=== PATIENT | female | born 1950 | race Caucasian/White ===

== ENCOUNTER 2022-07-12 14:30 | Inpatient (IN) | payer MEDICARE ==
[~2022-07-12] VITALS: Ht 162.6 cm; Wt 102.1 kg
[2022-07-12] MEDS ORDERED: ACETAMINOPHEN 325MG TABLET PO STA (14:38)
[2022-07-12 15:38] LABS: BASOPHILS % 0.5 % (0.0-2.0); EOSINOPHILS % 0.2 % (0.0-5.0); HEMATOCRIT. 34.9 % (36.0-48.0); HEMOGLOBIN. 11.5 g/dL (12.0-16.0); LYMPHOCYTES % 9.2 % (20.0-50.0); MEAN CORPUSCULAR HEMOGLOBIN 30.1 pg (28.0-32.0); MEAN CORPUSCULAR VOLUME 91.7 fL (81.0-99.0); MEAN PLATELET VOLUME 9.2 fl (7.4-10.4); MONOCYTES % 9.8 % (2.0-8.0); NEUTROPHILS % 80.3 % (40.0-76.0); PLATELET 163 x1000/uL (130-400); RED BLOOD CELL COUNT 3.81 mill/uL (4.2-5.4); RED CELL DISTRIBUTION WIDTH 14.6 % (11.6-14.6)
[2022-07-12 15:45] LABS: CHLORIDE 108 mEq/L (98-107)
[2022-07-12 15:49] LABS: INR 1.1; PROTHROMBIN TIME 11.4 sec (9.6-11.0)
[2022-07-12 15:54] LABS: ETHANOL BLOOD < 10 mg/dL
[2022-07-12 18:55] LABS: CLARITY URINE CLOUDY (CLEAR); COLOR URINE YELLOW (YELLOW); KETONES URINE NEGATIVE (NEGATIVE); LEUKOCYTE ESTERASE URINE 3+ (NEGATIVE); NITRITE URINE POSITIVE (NEGATIVE); OCCULT BLOOD URINE 1+ (NEGATIVE); PROTEIN URINE 2+ (NEGATIVE); SPECIFIC GRAVITY URINE 1.013 (1.005-1.030); UROBILINOGEN URINE 0.2 E.U./dL (0.2-1.0)
[2022-07-12] MEDS ORDERED: CEFTRIAXONE 2 G PREMIX 50 ML IV ONE (19:00)
[2022-07-12] MEDS ORDERED: SODIUM CHLORIDE 0.9% 1,000 ML IV NR (19:00)
[2022-07-12] MEDS ORDERED: CEFTRIAXONE 2 G in DEXTROSE 5% WATER 50 ML IV NR (19:15)
[2022-07-12 19:41] LABS: *AMPHETAMINES SCREEN URINE NEGATIVE (NEGATIVE); *BARBITURATES SCREEN URINE NEGATIVE (NEGATIVE); *BENZODIAZEPINES SCREEN URINE NEGATIVE (NEGATIVE); *COCAINE SCREEN URINE NEGATIVE (NEGATIVE); CANNABINOID URINE SCREEN NEGATIVE (NEGATIVE); METHADONE URINE SCREEN NEGATIVE (NEGATIVE); OPIATES URINE SCREEN NEGATIVE (NEGATIVE); PHENCYCLIDINE URINE SCREEN NEGATIVE (NEGATIVE)
[2022-07-12] MEDS ORDERED: DOCUSATE SODIUM 100MG CAPSULE PO PRN (23:45)
[2022-07-12] MEDS ORDERED: MAGNESIUM/ALUMINUM HYDROXIDE/SIMETHICONE 30ML UDC PO PRN (23:45)
[2022-07-12] MEDS ORDERED: ONDANSETRON HCL 4MG/2ML INJ IV PRN (23:45)
[2022-07-12] MEDS ORDERED: GUAIFENESIN 200MG/10ML SUGAR FREE UDC PO PRN (23:45)
[2022-07-12] MEDS ORDERED: ACETAMINOPHEN 325MG TABLET PO PRN (23:45)
[2022-07-13] MEDS ORDERED: DEXTROSE 50% WATER 50ML SYRINGE IV PRN
[2022-07-13 00:29] LABS: TOTAL IRON BINDING CAPACITY 281 ug/dL (250-450)
[2022-07-13 00:45] VITALS: BP 169/90
[2022-07-13] MEDS ORDERED: TRAZ-251 PO (01:00)
[2022-07-13] MEDS ORDERED: CARV3.1242 PO (01:00)
[2022-07-13] MEDS ORDERED: MONT-39 PO (01:00)
[2022-07-13] MEDS ORDERED: LOSA100T32 PO (01:00)
[2022-07-13] MEDS ORDERED: NALOXONE HCL 0.4MG/ML VIAL IV PRN (01:00)
[2022-07-13] MEDS ORDERED: ATOR-2 PO (01:00)
[2022-07-13] MEDS ORDERED: HYDR5TAB13 PO (01:00)
[2022-07-13 01:01] LABS: VITAMIN B12 SERUM 732 pg/mL (211-911)
[2022-07-13] MEDS: ACETAMINOPHEN 325MG TABLET PO PRN ×2 (01:17→20:30)
[2022-07-13] MEDS: CLONIDINE 0.1MG TABLET PO PRN (01:17)
[2022-07-13] MEDS: HYDROCODONE/ACETAMINOPHEN 5/325MG TABLET PO PRN ×2 (01:48→09:16)
[2022-07-13 06:12] LABS: BASOPHILS % 0.3 % (0.0-2.0); EOSINOPHILS % 0.1 % (0.0-5.0); HEMATOCRIT. 32.5 % (36.0-48.0); HEMOGLOBIN. 10.4 g/dL (12.0-16.0); LYMPHOCYTES % 9.2 % (20.0-50.0); MEAN CORPUSCULAR HEMOGLOBIN 29.6 pg (28.0-32.0); MEAN CORPUSCULAR VOLUME 92.7 fL (81.0-99.0); MEAN PLATELET VOLUME 9.4 fl (7.4-10.4); MONOCYTES % 7.7 % (2.0-8.0); NEUTROPHILS % 82.7 % (40.0-76.0); PLATELET 146 x1000/uL (130-400); RED CELL DISTRIBUTION WIDTH 14.5 % (11.6-14.6)
[2022-07-13 06:26] LABS: CHLORIDE 109 mEq/L (98-107)
[2022-07-13 06:49] LABS: HDL CHOLESTEROL 61 mg/dL (40-59); LDL CHOLESTEROL 75 mg/dL (5-100); T4 FREE 1.02 ng/dL (0.76-1.46)
[2022-07-13] MEDS: INSULIN LISPRO 100 UNITS/ML SUBCUT SCH ×4 (07:39→21:00)
[2022-07-13] MEDS: BLOOD SUGAR DIAGNOSTIC STRIP TEST SCH ×4 (07:39→21:29)
[2022-07-13 08:00] VITALS: BP 123/48
[2022-07-13] MEDS: CARVEDILOL 3.125 MG TABLET PO SCH ×2 (08:32→21:00)
[2022-07-13] MEDS: LOSARTAN POTASSIUM 100 MG TABLET PO SCH (08:32)
[2022-07-13] MEDS: FAMOTIDINE 20MG TABLET PO SCH ×2 (08:33→20:30)
[2022-07-13] MEDS: ATORVASTATIN CALCIUM 40MG TABLET PO SCH (08:33)
[2022-07-13] MEDS: MONTELUKAST SODIUM 10MG TABLET PO SCH (08:33)
[2022-07-13] MEDS ORDERED: CEFTRIAXONE 1 G PREMIX 50 ML IV SCH (09:00)
[2022-07-13] MEDS ORDERED: MEDICATION NOT ON FORMULARY EA (Atorvastatin Calcium 80 MG) PO SCH (09:00)
[2022-07-13] MEDS ORDERED: POTASSIUM CHLORIDE 20MEQ TABLET SR PO NR (10:15)
[2022-07-13] MEDS ORDERED: HYDROCODONE/ACETAMINOPHEN 7.5/325MG TABLET PO PRN (10:15)
[2022-07-13] MEDS: ENOXAPARIN 30MG/0.3ML SYR SUBCUT SCH ×2 (10:48→20:31)
[2022-07-13 12:00] VITALS: BP 110/44
[2022-07-13] MEDS: HYDROCODONE/ACETAMINOPHEN 10/325MG TABLET PO PRN ×2 (13:44→17:52)
[2022-07-13] MEDS: DICLOFENAC SODIUM 1% GEL 50GM TOP PRN ×2 (13:45→17:53)
[2022-07-13 20:00] VITALS: BP 105/54
[2022-07-13] MEDS: CEFTRIAXONE 1,000 MG in DEXTROSE 5% WATER 50 ML IV SCH (20:29)
[2022-07-13] MEDS: TRAZODONE HCL 50MG TABLET PO SCH (20:31)
[2022-07-14] VITALS: BP 133/54
[2022-07-14 04:00] VITALS: BP 178/81
[2022-07-14] MEDS: CLONIDINE 0.1MG TABLET PO PRN (05:10)
[2022-07-14] MEDS: HYDROCODONE/ACETAMINOPHEN 10/325MG TABLET PO PRN ×3 (05:17→17:02)
[2022-07-14] MEDS: INSULIN LISPRO 100 UNITS/ML SUBCUT SCH ×4 (07:37→21:00)
[2022-07-14] MEDS: BLOOD SUGAR DIAGNOSTIC STRIP TEST SCH ×4 (07:37→21:42)
[2022-07-14 08:00] VITALS: BP 173/57
[2022-07-14] MEDS: FAMOTIDINE 20MG TABLET PO SCH ×2 (08:22→21:00)
[2022-07-14] MEDS: MONTELUKAST SODIUM 10MG TABLET PO SCH (08:23)
[2022-07-14] MEDS: LOSARTAN POTASSIUM 100 MG TABLET PO SCH (08:23)
[2022-07-14] MEDS: ATORVASTATIN CALCIUM 40MG TABLET PO SCH (08:23)
[2022-07-14] MEDS: CARVEDILOL 3.125 MG TABLET PO SCH ×2 (08:29→21:00)
[2022-07-14] MEDS: DICLOFENAC SODIUM 1% GEL 50GM TOP PRN ×2 (08:35→17:02)
[2022-07-14] MEDS: ENOXAPARIN 30MG/0.3ML SYR SUBCUT SCH ×2 (10:00→21:01)
[2022-07-14 12:00] VITALS: BP 134/51
[2022-07-14 16:00] VITALS: BP 158/66
[2022-07-14] MEDS: IPRATROPIUM/ALBUTEROL 0.5-3(2.5)MG/3ML NEB HHN PRN (17:27)
[2022-07-14 20:00] VITALS: BP 137/59
[2022-07-14] MEDS: CEFTRIAXONE 1,000 MG in DEXTROSE 5% WATER 50 ML IV SCH (20:59)
[2022-07-14] MEDS: TRAZODONE HCL 50MG TABLET PO SCH (21:01)
[2022-07-15] VITALS (7 sets, daily range): BP systolic 111–173; BP diastolic 48–80
[2022-07-15] MEDS: HYDROCODONE/ACETAMINOPHEN 10/325MG TABLET PO PRN ×2 (07:02→21:41)
[2022-07-15] MEDS: INSULIN LISPRO 100 UNITS/ML SUBCUT SCH ×4 (07:32→21:00)
[2022-07-15] MEDS: BLOOD SUGAR DIAGNOSTIC STRIP TEST SCH ×4 (07:32→21:40)
[2022-07-15] MEDS: LOSARTAN POTASSIUM 100 MG TABLET PO SCH (08:40)
[2022-07-15] MEDS: ENOXAPARIN 30MG/0.3ML SYR SUBCUT SCH ×2 (08:40→22:06)
[2022-07-15] MEDS: CARVEDILOL 3.125 MG TABLET PO SCH ×2 (08:40→21:40)
[2022-07-15] MEDS: MONTELUKAST SODIUM 10MG TABLET PO SCH (08:40)
[2022-07-15] MEDS: FAMOTIDINE 20MG TABLET PO SCH ×2 (08:40→21:39)
[2022-07-15] MEDS: ATORVASTATIN CALCIUM 40MG TABLET PO SCH (08:40)
[2022-07-15 08:58] LABS: BASOPHILS % 0.7 % (0.0-2.0); EOSINOPHILS % 1.5 % (0.0-5.0); HEMATOCRIT. 32.6 % (36.0-48.0); HEMOGLOBIN. 10.8 g/dL (12.0-16.0); LYMPHOCYTES % 17.8 % (20.0-50.0); MEAN CORPUSCULAR HEMOGLOBIN 30.2 pg (28.0-32.0); MEAN CORPUSCULAR VOLUME 90.9 fL (81.0-99.0); MEAN PLATELET VOLUME 9.6 fl (7.4-10.4); PLATELET 162 x1000/uL (130-400); RED BLOOD CELL COUNT 3.58 mill/uL (4.2-5.4)
[2022-07-15 10:51] LABS: CHLORIDE 106 mEq/L (98-107)
[2022-07-15] MEDS: GENTAMICIN 100MG PREMIX 50 ML IV SCH (11:23)
[2022-07-15] MEDS: IPRATROPIUM/ALBUTEROL 0.5-3(2.5)MG/3ML NEB HHN PRN (14:19)
[2022-07-15] MEDS: TRAZODONE HCL 50MG TABLET PO SCH (21:39)
[2022-07-15] MEDS: CLONIDINE 0.1MG TABLET PO PRN (21:42)
[2022-07-16] VITALS: BP 114/44
[2022-07-16 04:00] VITALS: BP 114/79
[2022-07-16] MEDS: IPRATROPIUM/ALBUTEROL 0.5-3(2.5)MG/3ML NEB HHN PRN (06:40)
[2022-07-16] MEDS: BLOOD SUGAR DIAGNOSTIC STRIP TEST SCH ×2 (07:40→12:40)
[2022-07-16 08:03] VITALS: BP 140/60
[2022-07-16] MEDS: INSULIN LISPRO 100 UNITS/ML SUBCUT SCH ×2 (08:10→13:10)
[2022-07-16] MEDS: MONTELUKAST SODIUM 10MG TABLET PO SCH (09:36)
[2022-07-16] MEDS: CARVEDILOL 3.125 MG TABLET PO SCH (09:36)
[2022-07-16] MEDS: LOSARTAN POTASSIUM 100 MG TABLET PO SCH (09:36)
[2022-07-16] MEDS: FAMOTIDINE 20MG TABLET PO SCH (09:37)
[2022-07-16] MEDS: ENOXAPARIN 30MG/0.3ML SYR SUBCUT SCH (09:38)
[2022-07-16] MEDS: ATORVASTATIN CALCIUM 40MG TABLET PO SCH (09:39)
[2022-07-16] MEDS: HYDROCODONE/ACETAMINOPHEN 10/325MG TABLET PO PRN (10:21)
[2022-07-16] MEDS: GENTAMICIN 100MG PREMIX 50 ML IV SCH (11:52)
[2022-07-16 12:04] VITALS: BP 101/58
[2022-07-16 14:14] VITALS: BP 101/58
[2022-07-16] MEDS ORDERED: NITR-87 MT (14:26)
[2022-07-16 16:02] VITALS: BP 100/60
== END 2022-07-16 16:23 | disposition home or self-care (01) | DRG 872 ==
LOC: ER 14:30 → MICUSO 20:35 → 7WST 07-13 00:54
PROVIDERS: ADMIT Hospitalist; ATTEND Hospitalist
DX: A41.51 Sepsis due to Escherichia coli [E. coli] (principal); N39.0 Urinary tract infection, site not specified; J98.11 Atelectasis; I27.20 Pulmonary hypertension, unspecified; D63.8 Anemia in other chronic diseases classified elsewhere; M79.7 Fibromyalgia; M51.16 Intervertebral disc disorders with radiculopathy, lumbar region; I11.0 Hypertensive heart disease with heart failure; R65.20 Severe sepsis without septic shock; I50.9 Heart failure, unspecified; D64.9 Anemia, unspecified; E11.9 Type 2 diabetes mellitus without complications; E78.5 Hyperlipidemia, unspecified; J45.909 Unspecified asthma, uncomplicated; Z20.822 Contact with and (suspected) exposure to COVID-19; E78.00 Pure hypercholesterolemia, unspecified; G47.33 Obstructive sleep apnea (adult) (pediatric); M47.26 Other spondylosis with radiculopathy, lumbar region; G89.29 Other chronic pain; J44.9 Chronic obstructive pulmonary disease, unspecified; K21.9 Gastro-esophageal reflux disease without esophagitis; Z85.038 Personal history of other malignant neoplasm of large intestine; Z98.890 Other specified postprocedural states; Z79.84 Long term (current) use of oral hypoglycemic drugs
CPT/HCPCS: 36415; 71045; 80053; 80061; 80305; 80320; 81003; 82607; 82746; 82962; 83036; 83540; 83550; 83605; 83735; 84145; 84439; 84443; 84484; 85025; 87077; 87186; 87426; 93005; 93306; 93970; 97162; 97530; 99291; C9803; J0696; J1580; J1650; J7060; G0480